=== PATIENT | female | born 2000 ===

== ENCOUNTER 2020-02-05 20:14 | Inpatient (IN) | payer MEDICAID, OTHER ==
[2020-02-05] MEDS: LACTATED RINGERS 1,000 ML IV SCH (21:15)
[2020-02-05 22:23] LABS: Hematocrit 32.6 % (30.3-42.9); Hemoglobin 10.8 gm/dl (10.1-14.3); Mean Corpuscular HGB Conc 33 % (30-34); Mean Corpuscular Volume 84 fl (79-97); Platelet Count 285 K/mm3 (140-440); Red Blood Count 3.87 M/mm3 (3.65-5.03); Red Cell Distribution Width 13.3 % (13.2-15.2)
[2020-02-05] MEDS ORDERED: LIDOCAINE (2%) 20 MG/1 ML VIAL 20 ML MDV INFILTRATI ONE (22:49)
[2020-02-05] MEDS ORDERED: ePHEDrine SULFATE 50 MG/1 ML INJ IV PRN (22:49)
[2020-02-05] MEDS ORDERED: TERBUTALINE 1 MG/1 ML INJ SUB-Q PRN (22:49)
[2020-02-05] MEDS ORDERED: LACTATED RINGERS 1,000 ML IV SCH (23:00)
--- NOTE | 2020-02-05 23:00 | History and Physical Report ---
History of Present Illness Date of examination: 02/05/20 Date of admission: 02/05/20 20:55 Chief complaint: Contractions History of present illness: 19 year old presents to L&D in labor. Patient received care at [facility]; records are available. LMP 05/02/2019. EDC 02/15/2020. No complications during this . labs are as follows: O+, antibody screen negative. rubella immune, hepatitis B surface antigen negative, HIV negative, RPR nonreactive, gonorrhea negative, chlamydia negative, GBS negative, one hour sugar test 66. Patient denies health problems and she had a normal spontaneous vaginal delivery in 2018. Past History Past Medical History: no pertinent history Past Surgical History: no surgical history BUTCHER HEAD History: denies: abnormal PAP smear, chlamydia, gonorrhea, hepatitis B, hepatitis C, herpes, HIV, syphilis, trichomonas Family/Genetic History: none Social history: lives with family, full code. denies: smoking, alcohol abuse, prescription drug abuse, IV drug use - Obstetrical History Expected Date of Delivery: 02/15/20 Actual Gestation: 38 Week(s) 5 Day(s) : 2 Para: 1 Hx # Term Pregnancies: 1 Number of Pregnancies: 0 Spontaneous Abortions: 0 Induced : 0 Number of Living Children: 1 Medications and Allergies Allergies Allergy/AdvReac Type Severity Reaction Status Date / Time No Known Allergies Allergy Unverified 02/05/20 20:51 Home Medications Medication Instructions Recorded Confirmed Last Taken Type Vit-Fe Fumar-FA [ 1 tab PO QDAY 02/05/20 02/05/20 Unknown History Vitamin] Active Meds: Active Medications Ephedrine Sulfate (Ephedrine Sulfate) 10 mg IV Q2M PRN PRN Reason: Hypotension Fentanyl (Sublimaze) 100 mcg IV Q2H PRN PRN Reason: Pain,Severe (7-10) LABOR PAIN Oxytocin/Sodium Chloride (Pitocin/Ns 20 Unit/1000ml Drip) 20 units in 1,000 mls @ 125 mls/hr IV DIRECT DENNIS Lactated Ringer's (Lactated Ringers) 1,000 mls @ 125 mls/hr IV DIRECT DENNIS Terbutaline Sulfate (Brethine) 0.25 mg SUB-Q ONCE PRN PRN Reason: Hyperstimulation/Hypertonicity Review of Systems All systems: negative (contractions) - Vital Signs Vital signs: Vital Signs Temp Pulse Resp BP 98.3 F 89 18 109/80 02/05/20 20:29 02/05/20 20:29 02/05/20 20:29 02/05/20 20:29 Temp Pulse Resp BP Pulse Ox 98.5 F 92 H 18 110/69 98 02/05/20 22:30 02/05/20 22:57 02/05/20 20:29 02/05/20 21:49 02/05/20 22:57 - Physical Exam Abdomen: Positive: normal appearance, soft. Negative: distention, tenderness, guarding, rigidity Genitourinary (Female): Positive: normal external genitalia, normal perenium. Negative: perineal/vulvar lesions (no lesions noted on careful exam with bright light upon admission) Vagina: Positive: normal moisture Uterus: Positive: enlarged. Negative: nodular Anus/Rectum: Positive: normal perianal skin Extremities: Positive: normal, edema (mild pedal edema). Negative: tenderness - Obstetrical FHR: category 1 Cervical Dilatation: 7 Cervical Effacement Percentage: 90 station: -1 Uterine Contraction Pattern: Regular Uterine Contraction Intensity: Moderate Results Result Diagrams: 02/05/20 21:00 Abnormal lab results 02/05/20 Range/Units 21:00 WBC 11.3 H (4.5-11.0) K/mm3 All other labs normal. Assessment and Plan A: at 38 5/7 weeks gestation. Active labor. GBS negative. P: Admit. EFM. Anticipate vaginal .
[2020-02-06] MEDS: fentaNYL 100 MCG/2 ML INJ IV PRN ×2 (00:35→03:50)
[2020-02-06] MEDS ORDERED: MINERAL OIL 30 ML ORAL LIQD ONE (01:20)
[2020-02-06] MEDS: LACTATED RINGERS 1,000 ML IV SCH (02:35)
[2020-02-06] MEDS: OXYTOCIN 20 UNIT/1000ML DRIP 20 UNITS/1,000 ML BAG IV SCH ×2 (04:24→05:15)
[2020-02-06] MEDS ORDERED: LANOLIN/ZINC/DIMETHICONE (LANSINOH) 7 GM TP PRN (04:39)
[2020-02-06] MEDS ORDERED: MAGNESIUM HYDROXIDE (MOM) ORAL LIQD UDC PO PRN (04:39)
[2020-02-06] MEDS ORDERED: HYDROcodone/ACETAMINOPHEN 5-325 MG TAB PO PRN (04:39)
[2020-02-06] MEDS ORDERED: WITCH HAZEL/ GLYCERIN PAD TP PRN (04:39)
--- NOTE | 2020-02-06 04:46 | Procedure Note ---
OB Delivery Note - Delivery Date of Delivery: 02/06/20 Surgeon: KIM HAWKINS Estimated blood loss: 200cc - Vaginal Delivery presentation: vertex Delivery position: OA Intrapartum events: none Delivery induction: none Delivery augmentation: rupture of membranes Delivery monitor: external FHT, external uterine Route of delivery: Delivery placenta: spontaneous Delivery cord: 3 umbilical vessels Episiotomy: none Delivery laceration: none Anesthesia: none Delivery comments: Spontaneous vaginal delivery at 04:24 of liveborn male weighing 7 lb. 4 oz. over intact perineum with apgars of 8/9. Tight nuchal cord. Baby placed immediately skin to skin with mom after . Spontaneous cry and respirations. Baby bulb suctioned and dried with warm towels. 3 vessel cord double clamped and cut. Cord blood obtained. Spontaneous delivery of intact placenta and membranes at 04:28 by leblanc mechanism. EBL 200 cc. Pitocin to IV fluids after delivery of placenta. Fundus firm and midline. No lacerations noted. Vaginal sweep negative. Sponge count correct. Mother and baby stable.
[2020-02-06] MEDS ORDERED: FLU VACC QUAD 2019-20 (3 YR UP)/PF 60 MCG/0.5 ML SYRINGE IM ONE (12:00)
[2020-02-06] MEDS: IBUPROFEN 600 MG TAB PO SCH ×2 (13:23→17:58)
[2020-02-06 16:34] LABS: Hematocrit 32.8 % (30.3-42.9); Hemoglobin 10.8 gm/dl (10.1-14.3)
[2020-02-07] MEDS: IBUPROFEN 600 MG TAB PO SCH ×3 (00:05→11:23)
[2020-02-07] MEDS ORDERED: DIPHtheria,PERTUSSIS(ACELL),TETANUS VACCINE/PF 0.5 ML VIAL IM ONE (06:00)
[2020-02-07] MEDS ORDERED: TETANUS,DIPHTHERIA TOXOID ADULT 0.5 ML INJ IM ONE (06:00)
--- NOTE | 2020-02-07 09:36 | Progress Note ---
Assessment and Plan - Patient Problems (1) Status post normal vaginal delivery Current Visit: Yes Status: Acute Plan to address problem: D/C home today F/U at office in 6 weeks for routine PP visit Subjective - Subjective Date of service: 02/07/20 Principal diagnosis: S/P ; PPD#1 Interval history: See admission H & P; OB delivery summary and PP progress notes Patient reports: appetite normal, voiding normally, pain well controlled, flatus, ambulating normally, other (Desires to go home today) [place]: doing well () Objective - Vital Signs Latest vital signs: Vital Signs Temp Pulse Resp BP BP Pulse Ox 02/07/20 08:28 96.4 F L 69 16 112/61 99 02/06/20 23:54 97.9 F 72 17 110/69 99 02/06/20 17:58 20 02/06/20 16:52 97.8 F 72 12 90/42 95 02/06/20 13:23 20 Intake and Output 02/06/20 02/07/20 02/07/20 23:59 07:59 15:59 Other: Voiding Method Toilet # Voids Void 1 - Exam Breasts: Present: normal Cardiovascular: Present: Regular rate Lungs: Present: Normal air movement Abdomen: Present: soft Uterus: Present: firm, fundal height below umbilicus (U-1) Extremities: Present: normal Deep Tendon Reflex Grade: Normal +2
--- NOTE | 2020-02-07 09:38 | Discharge Summary ---
Providers - Providers Date of Admission: 02/05/20 20:55 Date of discharge: 02/07/20 Attending physician: LITA BURGESS Primary care physician: LITA BURGESS Hospitalization Reason for admission: active labor, IUP at term Delivery: Episiotomy: none Laceration: none Other procedures: none complications: none Discharge diagnosis: IUP at term delivered [place] baby: male Hospital course: See admission H & P; OB delivery summary and PP progress notes Condition at discharge: Good Disposition: DC-01 TO HOME OR SELFCARE - Discharge Diagnoses (1) Status post normal vaginal delivery Status: Acute Plan - Provider Discharge Summary Activity: routine, no sex for 6 weeks, no heavy lifting 4 weeks, no strenuous exercise Diet: other (Iron rich diet) Additional instructions: [] Smoking cessation referral if applicable(refer to patient education folder for contact #) [] Refer to [facility] Call your doctor immediately for: * Fever > 100.5 * Heavy vaginal bleeding ( >1 pad per hour) * Severe persistent headache * Shortness of breath * Reddened, hot, painful area to leg or breast * Drainage or odor from incision. * Keep incision clean and dry at all times and follow doctor's instructions regarding bathing/showering - Follow up plan Follow up: LITA BURGESS MD [Primary Care Provider] - 6 Weeks Forms: [facility] Discharge Summary
[2020-02-07 12:56] VITALS: BP 117/71
== END 2020-02-07 12:30 | disposition home or self-care (01) | DRG 807 ==
LOC: TRG 20:14 → LD 20:55 → OBSVTOIN 20:55 → OB 02-06 06:02
PROVIDERS: ADMIT Obstetrics & Gynecology; ATTEND Obstetrics & Gynecology
PROC: 10E0XZZ Delivery of Products of Conception, External Approach (ICD-10-PCS; principal; 2020-02-06)
PROC: 3E0234Z Introduction of Serum, Toxoid and Vaccine into Muscle, Percutaneous Approach (ICD-10-PCS; 2020-02-07)
DX: O69.1XX0 Labor and delivery complicated by cord around neck, with compression, not applicable or unspecified (principal); Z37.0 Single live birth; Z3A.38 38 weeks gestation of pregnancy; Z23 Encounter for immunization
CPT/HCPCS: 36415; 59025; 85014; 85018; 85027; 86592; 86850; 86900; 86901; 90471; 90686; 90714; 90715; G0378; A6250; J2590; J3010; J7120